=== PATIENT | male | born 1945 | race Caucasian/White ===

== ENCOUNTER 2017-08-01 15:34 | Emergency (ER) | payer BC | END 2017-08-01 16:28 | disposition left against medical advice (07) | LOC: SCSER 15:34 | DX: R53.83 Other fatigue (principal); R06.02 Shortness of breath; R11.0 Nausea; I48.91 Unspecified atrial fibrillation; I10 Essential (primary) hypertension; F32.9 Major depressive disorder, single episode, unspecified | CPT/HCPCS: 99283 ==